=== PATIENT | male | born 1980 | race American Indian/Alaskan Native ===

== ENCOUNTER 2016-04-19 12:21 | Emergency (ER) | payer MEDICARE ==
--- NOTE | 2016-04-19 18:17 | Emergency Department Report ---
HPI - General Chief Complaint: Eye Problems Time Seen by Provider: 04/19/16 17:31 - HPI HPI: 35-year-old male presents today with right eye redness x1 week. Denies injury or trauma. Denies foreign body sensation or change in vision. Patient states that he has a history of stroke which caused decrease in vision of right eye at the age of 18. No recent change in vision. Positive for minimal drainage. Denies pain and states his eye feels irritated. He tried Rohto cool max ophthalmic drops with temporary relief. Tried left over amoxicillin 500 mg with temporary relief. Denies fever, chills, nausea, vomiting, chest pain, shortness of breath, abdominal pain. ED Past Medical Hx - Past Medical History Hx Hypertension: Yes Hx CVA: Yes (1998) Additional medical history: valve replacement. 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 - Surgical History Additional Surgical History: aorta valve replacement, kidney surgery. - Social History Smoking Status: Current Every Day Smoker Substance Use Type: None - Medications Home Medications: Home Medications Medication Instructions Recorded Confirmed Last Taken Type HYDROcodone/APAP 7.5-325 [[place] 1 each PO Q6HR PRN #14 tablet 12/26/13 Unknown Rx 7.5/325 mg] Penicillin Vk [Veetids TAB] 500 mg PO QID #40 tablet 12/26/13 Unknown Rx Ofloxacin 0.3% [Ocuflox] 2 drops OP Q2H #1 bottle 04/19/16 Unknown Rx ED Review of Systems ROS: Stated complaint: POSS EYE INFECTION Other details as noted in HPI Constitutional: denies: chills, fever, malaise Eyes: eye pain, eye discharge, vision change ENT: denies: ear pain, throat pain, congestion Respiratory: denies: cough, shortness of breath, wheezing Cardiovascular: denies: chest pain, palpitations Endocrine: no symptoms reported Gastrointestinal: denies: abdominal pain, nausea, vomiting Skin: denies: rash Neurological: denies: headache, weakness Physical Exam - Physical Exam Vital Signs: Vital Signs 04/19/16 04/19/16 13:02 13:34 Temperature 98.2 F 98.2 F Pulse Rate 105 H 105 H Respiratory 16 16 Rate Blood Pressure 139/76 Blood Pressure 139/76 [Right] O2 Sat by Pulse 97 97 Oximetry Physical Exam: GENERAL: The patient is well-developed and well-nourished. Patient is in NAD. HEAD: Normocephalic. Atraumatic. EYES: Extraocular motions are intact, PERRL. conjunctival injection noted of right eye. Negative for drainage. EARS: External auditory canals and tympanic membranes clear; hearing grossly intact. NOSE: Normal nasal mucosa with no nasal discharge. THROAT: No erythema, swelling or exudates. NECK: Supple, nontender, without lymphadenopathy. CHEST/LUNGS: Clear to auscultation throughout. HEART/CARDIOVASCULAR: Regular rate and rhythm. ABDOMEN: Abdomen is soft, nontender. No guarding or rebound tenderness. ED Course Vital Signs 04/19/16 04/19/16 13:02 13:34 Temperature 98.2 F 98.2 F Pulse Rate 105 H 105 H Respiratory 16 16 Rate Blood Pressure 139/76 Blood Pressure 139/76 [Right] O2 Sat by Pulse 97 97 Oximetry ED Medical Decision Making - Lab Data Vital Signs 04/19/16 04/19/16 13:02 13:34 Temperature 98.2 F 98.2 F Pulse Rate 105 H 105 H Respiratory 16 16 Rate Blood Pressure 139/76 Blood Pressure 139/76 [Right] O2 Sat by Pulse 97 97 Oximetry - Medical Decision Making 35-year-old male presents today with right eye conjunctivitis. Patient is in no acute distress at this time. He will be discharged home and is encouraged to follow up with a primary care provider. He will be sent home on ofloxacin optic drops and is encouraged to return to the emergency room for any worsening symptoms. Critical care attestation.: If time is entered above; I have spent that time in minutes in the direct care of this critically ill patient, excluding procedure time. ED Disposition Clinical Impression: Conjunctivitis Qualifiers: Conjunctivitis type: acute Acute conjunctivitis type: unspecified Laterality: right Qualified Code(s): H10.31 - Unspecified acute conjunctivitis, right eye Disposition: DISCHARGED TO HOME OR SELFCARE Is pt being admited?: No Does the pt Need Aspirin: No Condition: Stable Instructions: Conjunctivitis (ED) Additional Instructions: Follow-up with primary care provider. Return to the emergency department if symptoms worsen. Prescriptions: Ofloxacin 0.3% [Ocuflox] 2 drops OP Q2H #1 bottle Referrals: [Primary Care Provider] - 3-5 Days YVETTE DONALDSON MD [Staff Physician] - 3-5 Days Forms: Work/School Release Form(ED) Time of Disposition: 18:20
[2016-04-19 18:28] VITALS: BP 140/76
== END 2016-04-19 18:29 | disposition home or self-care (01) ==
LOC: ED 12:21
DX: H10.31 Unspecified acute conjunctivitis, right eye (principal); I10 Essential (primary) hypertension; Z86.73 Personal history of transient ischemic attack (TIA), and cerebral infarction without residual deficits
CPT/HCPCS: 99282